=== PATIENT | female | born 1970 | race Two or more races ===

== ENCOUNTER 2019-04-12 10:59 | Outpatient (CLI) | payer OTHER | END 2019-04-12 11:07 | disposition home or self-care (01) | LOC: RX STUDY 10:59 | DX: N97.1 Female infertility of tubal origin (principal) ==

== ENCOUNTER 2020-11-18 10:41 | Outpatient (CLI) | payer OTHER | END 2020-11-18 10:44 | disposition home or self-care (01) | LOC: SONOGRAMA 10:41 | PROVIDERS: ATTEND Pathology Anatomic Pathology & Clinical Pathology | DX: E04.2 Nontoxic multinodular goiter (principal) ==